=== PATIENT | female | born 1965 | race Two or more races ===

== ENCOUNTER 2019-07-31 11:15 | Inpatient (IN) | payer OTHER ==
[~2019-07-31] VITALS: Ht 160 cm; Wt 63.5 kg
--- NOTE | 2019-07-31 11:25 | NUR ---
SE RECIBE PACIENTE POR PERSONAL DE EMERGENCIAS MEDICAS. FEMINA DE 54 ANOS,ALERTA,ORIENTADA EN TAMAR NONA ESFERAS,EN COMPANIA DE FAMILIAR. PACIENTE REFIERE DOLOR ABDOMINA,VOMITOS,DIARREAS CON EVOLUCION DE NONA ANDERSON. SE UBICA PACIENTE EN MONAE #10 PARA EVALUACION MEDICA.
--- NOTE | 2019-07-31 12:34 | NUR ---
SE RECIBE PTE FEMENINA DE 54 YRS ALERTA CONCIENTE Y TRANQUILA EN COMPANIA DE FAMILIAR. SE ACOMODA PTE EN MONAE CON BARANDAS ELEVADA. PTE LLEGA CANALIZADA EN ANTEBRASO DERECHO CON ANGIO #20 BAJANDO [id number] A KVO. ES EVALUADA POR EL BERTA HINOJOSA QUIEN ORDENA TRATAMIENTO LA CUAL SE EJECUTA. SE MANTIENE BAJO OBSERVACION POR CAMBIOS.
--- NOTE | 2019-07-31 15:30 | NUR ---
SE RECIBE PTE LA CUAL SE ENCUENTRA EN CAMA ACOMPANADA POR FAMILIAR. LA MISMA SE ENCUENTRA CON AREA DE VENOPUNCION PATENTE Y YI DE EDEMA. LA MISMA SE ENCUENTRA PEND A ESTUDIO A REALIZAR CT. SE MANTIENE PTE BAJO OBSERVACION RECIBIENDO TRATAMIENTO MEDICO.
[2019-08-04] MEDS ORDERED: AUGMENTIN XR 11 EACH PO (07:24)
[2019-08-04] MEDS ORDERED: FLAGYL500MG PO (07:25)
[2019-08-04] MEDS ORDERED: K-PHOS ORIGINA500 MG PO (07:27)
== END 2019-08-04 09:24 | disposition home or self-care (01) | DRG 340 ==
LOC: ER 11:15 → O/R 19:12 → SURH 08-01 00:30
PROVIDERS: ADMIT Colon & Rectal Surgery
PROC: 3E1M38Z Irrigation of Peritoneal Cavity using Irrigating Substance, Percutaneous Approach (ICD-10-PCS; 2019-07-31)
PROC: BW21ZZZ Computerized Tomography (CT Scan) of Abdomen and Pelvis (ICD-10-PCS; 2019-07-31)
PROC: 0DTJ4ZZ Resection of Appendix, Percutaneous Endoscopic Approach (ICD-10-PCS; principal; 2019-07-31 19:30)
DX: K35.32 Acute appendicitis with perforation, localized peritonitis, and gangrene, without abscess (principal); R10.84 Generalized abdominal pain